=== PATIENT | male | born 1960 | race African-American/Black ===

== ENCOUNTER 2016-08-19 04:38 | Emergency (ER) | payer MEDICARE ==
[2016-08-19 04:45] VITALS: BP 142/83
--- NOTE | 2016-08-19 07:06 | ER Document Report ---
ED General - General Chief Complaint: Flu Symptoms Stated Complaint: POSSIBLE FLU SYMPTOMS TRAVEL OUTSIDE OF THE [place] IN LAST 30 DAYS: No - HPI Patient complains to provider of: cough congestion fevers nausea Notes: Patient with ongoing symptoms for approximately the last 3 days. States that he thinks he did receive a flu shot this year but is uncertain. Denies smoking denies drinking denies any other drugs. Patient denies any past medical history denies any recent travel denies any recent antibiotics. Upon my evaluation patient is resting comfortably watching his iPhone. Patient states she has not been taking any medication at home for his symptoms. - Related Data Allergies/Adverse Reactions: No Known Allergies Allergy (Verified 08/19/16 04:40) Past Medical History - Social History Smoking Status: Never Smoker Chew tobacco use (# tins/day): No Frequency of alcohol use: None Drug Abuse: None Family History: Reviewed & Not Pertinent Patient has suicidal ideation: No Patient has homicidal ideation: No Renal/ Medical History: Denies: Hx Peritoneal Dialysis Past Surgical History: Reports: Hx Orthopedic Surgery - Left knee replacement - Immunizations Immunizations up to date: No Hx Diphtheria, Pertussis, Tetanus Vaccination: No Review of Systems - Review of Systems Constitutional: Malaise EENT: No symptoms reported Cardiovascular: No symptoms reported Respiratory: Cough, Short of breath Gastrointestinal: No symptoms reported Genitourinary: No symptoms reported Male Genitourinary: No symptoms reported Musculoskeletal: Muscle pain Skin: No symptoms reported Hematologic/Lymphatic: No symptoms reported Neurological/Psychological: No symptoms reported -: Yes All other systems reviewed and negative Physical Exam - Vital signs Vitals: Temp Pulse Resp BP Pulse Ox 97.5 F 81 20 142/83 H 97 08/19/16 04:44 08/19/16 04:44 08/19/16 04:44 08/19/16 04:44 08/19/16 04:44 Interpretation: Normal - General General appearance: Appears well, Alert - HEENT Head: Normocephalic, Atraumatic Eyes: Normal Pupils: PERRL - Respiratory Respiratory status: No respiratory distress Chest status: Nontender Breath sounds: Normal Chest palpation: Normal - Cardiovascular Rhythm: Regular Heart sounds: Normal auscultation Murmur: No - Abdominal Inspection: Normal Distension: No distension Bowel sounds: Normal Tenderness: Nontender Organomegaly: No organomegaly - Back Back: Normal, Nontender - Extremities General upper extremity: Normal inspection, Nontender, Normal color, Normal ROM , Normal temperature General lower extremity: Normal inspection, Nontender, Normal color, Normal ROM , Normal temperature, Normal weight bearing. No: Nayeli's sign - Neurological Neuro grossly intact: Yes Cognition: Normal Orientation: AAOx4 [place] Coma Scale Eye Opening: Spontaneous [place] Coma Scale Verbal: Oriented [place] Coma Scale Motor: Obeys Commands Rosa Coma Scale Total: 15 Speech: Normal Motor strength normal: LUE, RUE, LLE, RLE Sensory: Normal - Psychological Associated symptoms: Normal affect, Normal mood - Skin Skin Temperature: Warm Skin Moisture: Dry Skin Color: Normal Course - Re-evaluation Re-evalutation: 08/19/16 07:45 Patient returned flu type A positive patient will be given Phenergan for any nausea. Patient was encouraged to take Tylenol and Motrin and drink plenty of fluids to stay all hydrated. The disease course of the flu was discussed with the patient patient states understanding patient will be given a work note patient will be discharged home - Vital Signs Vital signs: Temp Pulse Resp BP Pulse Ox 97.5 F 81 20 142/83 H 97 08/19/16 04:44 08/19/16 04:44 08/19/16 04:44 08/19/16 04:44 08/19/16 04:44 Discharge - Discharge Clinical Impression: Influenza A Condition: Good Disposition: HOME, SELF-CARE Instructions: Influenza ([facility]) [phone] Additional Instructions: Please drink plenty of water to stay hydrated. Follow-up with your primary care physician. You can expect to feel sick for another 4-5 days with fevers and chills he can expect to feel weak for another week Take medication as prescribed for nausea. Continue to take Tylenol and Motrin for fever and pain control. Prescriptions: Promethazine HCl [Phenergan 25 mg Tablet] 1 - 2 tab PO Q6H PRN #20 tablet PRN Reason: Forms: Return to Work
== END 2016-08-19 07:08 | disposition home or self-care (01) ==
LOC: ER 04:38
DX: J09.X2 Influenza due to identified novel influenza A virus with other respiratory manifestations (principal); R05 Cough; R09.81 Nasal congestion; R50.9 Fever, unspecified; R11.0 Nausea
CPT/HCPCS: 87804; 99283

== ENCOUNTER 2016-08-22 23:51 | Emergency (ER) | payer MEDICARE ==
--- NOTE | 2016-08-23 00:07 | ER Document Report ---
ED Medical Screen (RME) - General Chief Complaint: Fall Injury Stated Complaint: FALL/BACK PAIN Mode of Arrival: Ambulatory Information source: Patient Notes: pt presents to the ed with c/o right knee pain and low back pain after falling down three steps on his buttocks. Reports he heard his knee do something, pull. Reports left knee replacement. Denies urinary or bowel incontinence or retention. Denies numbness and tingling. Reports some left shoulder pain. Patient took Percocet before he arrived he is on pain management. I have greeted and performed a rapid initial assessment of this patient. A comprehensive ED assessment and evaluation of the patient, analysis of test results and completion of the medical decision making process will be conducted by additional ED providers. TRAVEL OUTSIDE OF THE [place] IN LAST 30 DAYS: No - Related Data Allergies/Adverse Reactions: No Known Allergies Allergy (Verified 08/19/16 04:40) Past Medical History Renal/ Medical History: Denies: Hx Peritoneal Dialysis Past Surgical History: Reports: Hx Orthopedic Surgery - Left knee replacement - Immunizations Immunizations up to date: No Hx Diphtheria, Pertussis, Tetanus Vaccination: No Physical Exam - Vital signs Vitals: Temp Pulse Resp BP Pulse Ox 98.3 F 88 16 127/79 H 94 08/22/16 23:58 08/22/16 23:58 08/22/16 23:58 08/22/16 23:58 08/22/16 23:58 Course - Vital Signs Vital signs: Temp Pulse Resp BP Pulse Ox 98.3 F 88 16 127/79 H 94 08/22/16 23:58 08/22/16 23:58 08/22/16 23:58 08/22/16 23:58 08/22/16 23:58
--- NOTE | 2016-08-23 03:19 | ER Document Report ---
ED General - General Chief Complaint: Fall Injury Stated Complaint: FALL/BACK PAIN Mode of Arrival: Ambulatory Notes: Patient is a 56-year-old male presents with complaints of knee pain, left shoulder pain, and mild low back pain. Says he fell. He says most the pain is in his left shoulder and right knee. He says it hurts to bear weight on his right knee. Most pain is on the medial aspect of his right knee. He says his left knee pain is mild. The back pain is mild. He does have some pain in the left shoulder. He says it hurts his left shoulder whenever he tries to abduct the left shoulder. He denies any is head. No loss of conscious. No neck pain. No chest or abdominal pain. No other complaints at this time. TRAVEL OUTSIDE OF THE [place] IN LAST 30 DAYS: No - Related Data Allergies/Adverse Reactions: No Known Allergies Allergy (Verified 08/19/16 04:40) Past Medical History - General Information source: Patient - Social History Smoking Status: Never Smoker Chew tobacco use (# tins/day): No Frequency of alcohol use: Occasional Drug Abuse: None Family History: Reviewed & Not Pertinent Patient has suicidal ideation: No Patient has homicidal ideation: No Renal/ Medical History: Denies: Hx Peritoneal Dialysis Past Surgical History: Reports: Hx Orthopedic Surgery - Left knee replacement - Immunizations Immunizations up to date: No Hx Diphtheria, Pertussis, Tetanus Vaccination: No Review of Systems - Review of Systems Notes: My Normal Review Basic REVIEW OF SYSTEMS: CONSTITUTIONAL : Denies fever, chills, or sweats. Denies recent illness. MUSCULOSKELETAL: Pain in right knee and left shoulder. SKIN: Denies rash or skin lesions. NEUROLOGICAL: Denies altered mental status or loss of consciousness. Denies headache. Denies weakness or paralysis or loss of use of either side. Denies problems with gait or speech. Denies sensory or motor loss. ALL OTHER SYSTEMS REVIEWED AND NEGATIVE. Physical Exam - Vital signs Vitals: Temp Pulse Resp BP Pulse Ox 98.3 F 88 16 127/79 H 94 08/22/16 23:58 08/22/16 23:58 08/22/16 23:58 08/22/16 23:58 08/22/16 23:58 - Notes Notes: General Appearance: Well nourished, alert, cooperative, no acute distress, mild obvious discomfort. Well-appearing Vitals: reviewed, See vital signs table. Head: no swelling or tenderness to the head Eyes: PERRL, EOMI, Conjuctiva clear Neck: Supple, no neck tenderness, No step-offs or deformities. Back: No tenderness to palpation of thoracic or lumbar spine. No step-offs or deformities. Extremities: strength 5/5 in all extremities, good pulses in all extremities, pain to palpation over the medial aspect of the left knee. No ligament laxity on stress exam of the joint. Patient is able to fully extend the leg and hold it off the bed without difficulty. Some pain with range of motion but no restriction. Remainder of right lower extremity is nontender. Minimal pain over left knee. Full range of motion of left knee without difficulty. Right upper extremity is nontender. Patient has some pain with range of motion of his left shoulder. Pain is mostly with abduction of left shoulder. Abduction is limited to approximately 75 remainder of left upper extremity is nontender. , no edema. Skin: warm, dry, appropriate color, no rash Neuro: speech clear, oriented x 3, normal affect, responds appropriately to questions. Course - Vital Signs Vital signs: Temp Pulse Resp BP Pulse Ox 98.3 F 88 16 127/79 H 94 08/22/16 23:58 08/22/16 23:58 08/22/16 23:58 08/22/16 23:58 08/22/16 23:58 - Transfer of Care Notes: 08/23/16 03:17 Patient appears have a knee strain. We'll place him in a Donn bandage. I encouraged him to get a neoprene knee brace from the pharmacy. I encourage him to be nonweightbearing. Patient says he prefers to use his cane over using crutches. Patient does have appears to be most likely a rotator cuff tear. His limitation with abduction. He otherwise has full range of motion of the left shoulder. No significant tenderness to palpation. No deformity. Patient will be discharged home. Encouraged to stay nonweightbearing on his knee for the next 3-4 days. After that he can attempt to start bearing weight. If he is having difficulty with bearing weight still he is to follow-up with orthopedic clinic for evaluation. Patient encouraged return to ER immediately. Has a headache, vomiting, worsening knee pain or swelling, worsening difficulties with the shoulder. Patient's left knee was minimally tender and does not require x-rays. Patient's back was nontender to palpation on my exam. Dictation of this chart was performed using voice recognition software; therefore, there may be some unintended grammatical errors. Discharge - Discharge Clinical Impression: Left shoulder strain Qualifiers: Encounter type: initial encounter Qualified Code(s): S46.912A - Strain of unspecified muscle, fascia and tendon at shoulder and upper arm level, left arm , initial encounter Knee strain Qualifiers: Encounter type: initial encounter Laterality: right Qualified Code(s): S86.911A - Strain of unspecified muscle(s) and tendon(s) at lower leg level, right leg, initial encounter Condition: Good Disposition: HOME, SELF-CARE Additional Instructions: Please follow-up with orthopedic clinic, Dr. Nesbitt, in 3-4 days if you're still having any pain with bearing weight of your knee. Please follow up closely with your primary care doctor for reevaluation in one week. Please return to the ER if you have worsening pain, swelling, severe headache, vomiting , or feel unwell. Forms: Return to Work
[2016-08-23 03:25] VITALS: BP 130/85
== END 2016-08-23 03:26 | disposition home or self-care (01) ==
LOC: ER 23:51
DX: S46.912A Strain of unspecified muscle, fascia and tendon at shoulder and upper arm level, left arm, initial encounter (principal); S86.911A Strain of unspecified muscle(s) and tendon(s) at lower leg level, right leg, initial encounter; M25.512 Pain in left shoulder; M54.5 Low back pain; M25.561 Pain in right knee; M25.562 Pain in left knee; W10.9XXA Fall (on) (from) unspecified stairs and steps, initial encounter
CPT/HCPCS: 99284

== ENCOUNTER 2016-11-16 07:30 | Emergency (ER) | payer MEDICARE ==
[2016-11-16] MEDS ORDERED: NORMAL SALINE 1000 ML 1,000 ML IV ONE (08:11)
[2016-11-16] MEDS ORDERED: LIDOCAINE 5% (700 MG) TRANSDERMAL ADH..PATCH TP ONE (08:11)
--- NOTE | 2016-11-16 08:15 | ER Document Report ---
ED General - General Chief Complaint: Headache Stated Complaint: WEAKNESS Time Seen by Provider: 11/16/16 07:53 TRAVEL OUTSIDE OF THE [place] IN LAST 30 DAYS: No - HPI Patient complains to provider of: Headache weakness Notes: Patient presents today for right-sided headache and weakness right side greater than left. Patient states workup with his symptoms. Patient states feels generally weak all over however states that the right side may feel more whenever he is looking to the left than the left side. Patient states whenever he is looking straight on symptoms are worse the same On each side. Was seen ambulating in the ER with assistance of a cane. Patient states he does use a cane for ambulation sometimes. Patient states headache sharp right-sided. Patient denies any fever chills nausea vomiting. Patient denies any significant past medical problems. Patient states he did not take anything for his headache this morning. Denies any history of trauma denies any history of travel. patient does state he is having some back pain. Denies any dysuria or bowel bladder incontinence no numbness no tingling no saddle anesthesias. - Related Data Allergies/Adverse Reactions: No Known Allergies Allergy (Verified 08/19/16 04:40) Past Medical History - Social History Smoking Status: Unknown if Ever Smoked Family History: Reviewed & Not Pertinent Patient has suicidal ideation: No Patient has homicidal ideation: No Renal/ Medical History: Denies: Hx Peritoneal Dialysis Past Surgical History: Reports: Hx Orthopedic Surgery - Left knee replacement - Immunizations Immunizations up to date: No Hx Diphtheria, Pertussis, Tetanus Vaccination: No Review of Systems - Review of Systems Constitutional: Weakness EENT: No symptoms reported Cardiovascular: No symptoms reported Respiratory: No symptoms reported Gastrointestinal: No symptoms reported Genitourinary: No symptoms reported Male Genitourinary: No symptoms reported Musculoskeletal: No symptoms reported Skin: No symptoms reported Hematologic/Lymphatic: No symptoms reported Neurological/Psychological: Headaches -: Yes All other systems reviewed and negative Physical Exam - Vital signs Vitals: Temp Pulse Resp BP Pulse Ox 98.1 F 93 18 133/83 H 96 11/16/16 07:33 11/16/16 07:33 11/16/16 07:33 11/16/16 07:33 11/16/16 07:33 Interpretation: Normal - General General appearance: Appears well, Alert - HEENT Head: Normocephalic, Atraumatic Eyes: Normal Conjunctiva: Normal Cornea: Normal Pupils: PERRL Ears: Normal External canal: Normal Tympanic membrane: Normal Sinus: Normal Nasal: Normal Mouth/Lips: Normal Neck: Normal - Respiratory Respiratory status: No respiratory distress Chest status: Nontender Breath sounds: Normal Chest palpation: Normal - Cardiovascular Rhythm: Regular Heart sounds: Normal auscultation Murmur: No - Abdominal Inspection: Normal Distension: No distension Bowel sounds: Normal Tenderness: Nontender Organomegaly: No organomegaly - Back Back: Normal, Nontender - Extremities General upper extremity: Normal inspection, Nontender, Normal color, Normal ROM , Normal temperature General lower extremity: Normal inspection, Nontender, Normal color, Normal ROM , Normal temperature, Normal weight bearing. No: Nayeli's sign - Neurological Neuro grossly intact: Yes Cognition: Normal Orientation: AAOx4 [place] Coma Scale Eye Opening: Spontaneous [place] Coma Scale Verbal: Oriented [place] Coma Scale Motor: Obeys Commands [place] Coma Scale Total: 15 Speech: Normal Cranial nerves: Normal Cerebellar coordination: Normal Motor strength normal: LUE, RUE, LLE, RLE Additional motor exam normals: Equal exercise physiologist certified Sensory: Normal Knee - Reflex grade: 2 = Normal - Psychological Associated symptoms: Normal affect, Normal mood - Skin Skin Temperature: Warm Skin Moisture: Dry Skin Color: Normal Course - Re-evaluation Re-evalutation: 11/16/16 08:18 Patient states that he is having unilateral weakness of her nerves moving appreciated on physical examination. Will obtain CT of the patient's head and an x-ray of the patient's back 11/16/16 12:13 The patient presents with headache without signs of [employer]IK[employer]ACTITIONER bleed, stroke, infection , or other serious etiology. The patient is neurologically intact. Given the extremely low risk of these diagnoses further testing and evaluation for these possibilities does not appear to be indicated at this time. The patient has been instructed to return if the symptoms worsen or change in any way.. ~: The patient presents with low back pain without signs of spinal cord compression, cauda equina syndrome, infection, aneurysm, or other serious etiology. The patient is neurologically intact. Given the extremely low risk of these diagnoses further testing and evaluation for these possibilities does not appear to be indicated at this time. The patient has been instructed to return if the symptoms worsen or change in any way. . Sleeping upon evaluation. More likely muscle skeletal cause for the patient's pain. Patient will be discharged home recommend anti-inflammatory medication and Skelaxin. Patient agrees with - Vital Signs Vital signs: Temp Pulse Resp BP Pulse Ox 98.4 F 84 18 141/90 H 96 11/16/16 11:34 11/16/16 11:34 11/16/16 11:34 11/16/16 11:34 11/16/16 11:34 - Laboratory Result Diagrams: 11/16/16 08:34 11/16/16 10:00 Discharge - Discharge Clinical Impression: Neck pain Headache Qualifiers: Headache type: unspecified Headache chronicity pattern: unspecified pattern Intractability: not intractable Qualified Code(s): R51 - Headache Back pain Qualifiers: Back pain location: low back pain Chronicity: unspecified Back pain laterality : unspecified Sciatica presence: without sciatica Qualified Code(s): M54.5 - Low back pain Condition: Good Disposition: HOME, SELF-CARE Instructions: Headache ([facility]), Muscle Relaxers ([facility]), Anti-Inflammatory Medication ([facility]), Low Back Pain ([facility]), Stretching Exercises for the Back ([facility]), Weakness ([facility]) Additional Instructions: The CAT scan of your head normal. The x-rays of her back does show some arthritic changes. I do believe more likely the pain in her head and neck is all muscle skeletal related. More likely due to tight muscles. I would highly recommend taking anti-inflammatory medication he may take the muscle relaxer prescribed. Follow-up with your primary care physician for Prescriptions: Ibuprofen [Motrin 600 Mg Tablet] 600 mg PO TID #30 tablet Metaxalone [Skelaxin 800 mg Tablet] 800 mg PO ASDIR PRN #30 tablet PRN Reason: Forms: Return to Work
[2016-11-16] MEDS ORDERED: ONDANSETRON HCL INJ/PF 4 MG/2 ML SDV IV ONE (08:20)
[2016-11-16] MEDS ORDERED: PROCHLORPERAZINE EDISYLATE INJ 10 MG/2 ML VIAL IV ONE (08:20)
[2016-11-16 08:42] LABS: ABSOLUTE BASOPHILS # (AUTO) 0.1 10^3/uL (0.0-0.2); ABSOLUTE LYMPHOCYTES (AUTO) 1.7 10^3/uL (0.5-4.7); ABSOLUTE MONOCYTES (AUTO) 0.6 10^3/uL (0.1-1.4); ABSOLUTE NEUT (AUTO) 2.7 10^3/uL (1.7-8.2); EOSINOPHILS % (AUTO) 0.7 % (0-6); HEMATOCRIT 42.2 % (37.9-51.0); HEMOGLOBIN 14.2 g/dL (13.5-17.0); HGB HCT DIFFERENCE 0.4; MEAN CORPUSCULAR HEMOGLOBIN 29.8 pg (27.0-33.4); MEAN CORPUSCULAR HGB CONC 33.8 g/dL (32.0-36.0); MEAN CORPUSCULAR VOLUME 88 fl (80-97); MONOCYTES % (AUTO) 12.1 % (3-13); RED BLOOD COUNT 4.77 10^6/uL (4.35-5.55); RED CELL DISTRIBUTION WIDTH 13.4 % (11.5-14.0); SEGMENTED NEUTROPHILS % (AUTO) 53.2 % (42-78); WHITE BLOOD COUNT 5.2 10^3/uL (4.0-10.5)
--- NOTE | 2016-11-16 08:55 | RADIOLOGY REPORT (SQ) ---
EXAM DESCRIPTION: CT HEAD WITHOUT COMPLETED DATE/TIME: 11/16/2016 8:39 am REASON FOR STUDY: weakness headache COMPARISON: 06/19/2013 TECHNIQUE: Axial images acquired through the brain without intravenous contrast. Images reviewed wi th bone, brain and subdural windows. Images stored on PACS. All CT scanners at this facility use dose modulation, iterative reconstruction, and/or weight based d osing when appropriate to reduce radiation dose to as low as reasonably achievable (ALARA). [facility]: Dose Right [facility]: CareDose [facility]: Dose Right [facility]: Teradose 4D [facility]: [employer] RADIATION DOSE: 64.61 mGy. LIMITATIONS: None. FINDINGS: VENTRICLES: Normal size and contour. CEREBRUM: No masses. No hemorrhage. No midline shift. Normal lizarraga/white matter differentiation. N o evidence for acute infarction. CEREBELLUM: No masses. No hemorrhage. No alteration of density. No evidence for acute infarction. EXTRAAXIAL SPACES: No fluid collections. No masses. ORBITS AND GLOBE: No intra- or extraconal masses. Normal contour of globe without masses. CALVARIUM: No fracture. PARANASAL SINUSES: No fluid or mucosal thickening. SOFT TISSUES: No mass or hematoma. OTHER: No other significant finding. IMPRESSION: NORMAL BRAIN CT WITHOUT CONTRAST. TECHNICAL DOCUMENTATION: JOB ID: [id number] Quality ID # [id number]: Final reports with documentation of one or more dose reduction techniques (e.g., Au tomated exposure control, adjustment of the mA and/or kV according to patient size, use of iterative reconstruction technique) 2010 [employer]- All Rights Reserved
--- NOTE | 2016-11-16 09:18 | RADIOLOGY REPORT (SQ) ---
EXAM DESCRIPTION: L SPINE 2 VIEWS COMPLETED DATE/TIME: 11/16/2016 9:02 am REASON FOR STUDY: weakness headache COMPARISON: 02/04/2016 NUMBER OF VIEWS: Five views including obliques. TECHNIQUE: AP, lateral, oblique, and sacral radiographic images acquired of the lumbar spine. LIMITATIONS: None. FINDINGS: MINERALIZATION: Normal. SEGMENTATION: Normal. No transitional anatomy. ALIGNMENT: Normal. VERTEBRAE: Maintained height. No fracture or worrisome bone lesion. DISCS: Multilevel disc space narrowing with osteophytes. POSTERIOR ELEMENTS: Pedicles and facets are intact. No pars defect or posterior arch defects. Facet arthropathy is present. HARDWARE: None in the spine. PARASPINAL SOFT TISSUES: Normal. PELVIS: Intact as visualized. No fractures or worrisome bone lesions. SI joints intact. OTHER: No other significant finding. IMPRESSION: SPONDYLOSIS WITHOUT BONE LESION OR FRACTURE. TECHNICAL DOCUMENTATION: JOB ID: [id number] [employer]- All Rights Reserved
[2016-11-16] MEDS ORDERED: KETOROLAC TROMETHAMINE INJ/PF 30 MG/1 ML SDV IV ONE (09:59)
[2016-11-16 10:47] LABS: ANION GAP 14 (5-19); BLOOD UREA NITROGEN 11 mg/dL (7-20); CALCIUM 9.6 mg/dL (8.4-10.2); CARBON DIOXIDE 30 mmol/L (22-30); CHLORIDE 99 mmol/L (98-107); CREATININE RESULT 0.77 mg/dL (0.52-1.25); GLUCOSE 80 mg/dL (75-110); MAGNESIUM 2.3 mg/dL (1.6-2.3); POTASSIUM 3.8 mmol/L (3.6-5.0); SODIUM 142.9 mmol/L (137-145)
[2016-11-16 11:35] VITALS: BP 141/90
== END 2016-11-16 12:32 | disposition home or self-care (01) ==
LOC: ER 07:30
DX: M54.2 Cervicalgia (principal); R51 Headache; M54.5 Low back pain; R53.1 Weakness; Z96.652 Presence of left artificial knee joint
CPT/HCPCS: 99284; 96374; 96375; 36415; 83735; 85025; 80048; 72100; 70450; J1885; J0780; J2405; J7030; 96361

== ENCOUNTER 2017-03-14 04:14 | Emergency (ER) | payer MEDICARE ==
--- NOTE | 2017-03-14 05:54 | RADIOLOGY REPORT (SQ) ---
EXAM DESCRIPTION: KNEE BILATERAL 1-2 VIEWS COMPLETED DATE/TIME: 03/14/2017 5:19 am REASON FOR STUDY: pain COMPARISON: None. NUMBER OF VIEWS: Two views. TECHNIQUE: AP and lateral radiographic images acquired of the right and left knee. LIMITATIONS: None. FINDINGS: MINERALIZATION: Normal. BONES: No acute fracture or dislocation. No worrisome bone lesions. No significant osteophytes. Left total knee arthroplasty without evidence of metal fracture or loosening. JOINT: Moderate left knee effusion. OTHER: No other significant finding. IMPRESSION: Moderate left knee effusion. Left total knee arthroplasty. Intact right knee. TECHNICAL DOCUMENTATION: JOB ID: [id number] [employer]- All Rights Reserved
--- NOTE | 2017-03-14 06:07 | ER Document Report ---
ED General - General Chief Complaint: Knee Pain Stated Complaint: PAIN IN BOTH KNEES Time Seen by Provider: 03/14/17 04:44 TRAVEL OUTSIDE OF THE [place] IN LAST 30 DAYS: No - HPI Patient complains to provider of: Bilateral knee pain Notes: Patient coming in for bilateral knee pain. Patient states proximal and 24 hours ago had a fall refill on both knees. Patient denies any other trauma patient has a history of the left knee replacement. Patient states no relief at home with Tylenol Motrin. Patient denies fevers chills nausea vomiting diarrhea. Patient is ambulating with a cane - Related Data Allergies/Adverse Reactions: No Known Allergies Allergy (Verified 03/14/17 04:18) Past Medical History - Social History Smoking Status: Never Smoker Chew tobacco use (# tins/day): No Frequency of alcohol use: None Drug Abuse: None Family History: Reviewed & Not Pertinent Patient has suicidal ideation: No Patient has homicidal ideation: No Renal/ Medical History: Denies: Hx Peritoneal Dialysis Past Surgical History: Reports: Hx Orthopedic Surgery - Left knee replacement - Immunizations Immunizations up to date: No Hx Diphtheria, Pertussis, Tetanus Vaccination: No Review of Systems - Review of Systems Constitutional: No symptoms reported EENT: No symptoms reported Cardiovascular: No symptoms reported Respiratory: No symptoms reported Gastrointestinal: No symptoms reported Genitourinary: No symptoms reported Male Genitourinary: No symptoms reported Musculoskeletal: Other - Bilateral knee pain Skin: No symptoms reported Hematologic/Lymphatic: No symptoms reported Neurological/Psychological: No symptoms reported Physical Exam - Vital signs Vitals: Temp Pulse Resp BP Pulse Ox 98.7 F 93 18 138/76 H 95 03/14/17 04:18 03/14/17 04:18 03/14/17 04:18 03/14/17 04:18 03/14/17 04:18 Interpretation: Normal - General General appearance: Appears well, Alert - HEENT Head: Normocephalic, Atraumatic Eyes: Normal Pupils: PERRL - Respiratory Respiratory status: No respiratory distress Chest status: Nontender Breath sounds: Normal Chest palpation: Normal - Cardiovascular Rhythm: Regular Heart sounds: Normal auscultation Murmur: No - Abdominal Inspection: Normal Distension: No distension Bowel sounds: Normal Tenderness: Nontender Organomegaly: No organomegaly - Back Back: Normal, Nontender - Extremities General upper extremity: Normal inspection, Nontender, Normal color, Normal ROM , Normal temperature General lower extremity: Nontender, Normal color, Normal ROM, Normal temperature , Normal weight bearing. No: Normal inspection - Patient has a healed surgical scar on the left knee. Slight joint effusion. Left knee and right knee showed no laxity with valgus varus anterior posterior drawer testing., Nayeli's sign - Neurological Neuro grossly intact: Yes Cognition: Normal Orientation: AAOx4 Webb Coma Scale Eye Opening: Spontaneous Rosa Coma Scale Verbal: Oriented Webb Coma Scale Motor: Obeys Commands Webb Coma Scale Total: 15 Speech: Normal Motor strength normal: LUE, RUE, LLE, RLE Sensory: Normal - Psychological Associated symptoms: Normal affect, Normal mood - Skin Skin Temperature: Warm Skin Moisture: Dry Skin Color: Normal Course - Re-evaluation Re-evalutation: 03/14/17 06:05 X-rays of the knees are negative. Reviewed patient's narcotic prescriptions for narcotic database shows monthly prescriptions of oxycodone patient looks to be in pain management in [facility]. The explained to the patient has x- rays negative think follow-up with his primary care physician for further evaluation. - Vital Signs Vital signs: Temp Pulse Resp BP Pulse Ox 98.7 F 93 18 138/76 H 95 03/14/17 04:18 03/14/17 04:18 03/14/17 04:18 03/14/17 04:18 03/14/17 04:18 Discharge - Discharge Clinical Impression: Bilateral knee pain Qualifiers: Chronicity: acute Qualified Code(s): M25.561 - Pain in right knee; M25.562 - Pain in left knee Condition: Good Disposition: HOME, SELF-CARE Instructions: Ice & Elevation ([facility]), Knee Exercise Program ([facility]), Contusion ( [facility]), Anti-Inflammatory Medication ([facility]) Additional Instructions: Evaluation today does not reveal any signs of fracture your x-rays are negative. More likely experiencing bruising from her recent trauma. However recommend continue to ice and elevate he may also continue take Tylenol and Motrin for pain control. Follow-up with your primary care physician return to the ER symptoms worsen Forms: Return to Work Referrals: CHEO MALDONADO MD [Primary Care Provider] - Follow up as needed
[2017-03-14 06:23] VITALS: BP 132/78
== END 2017-03-14 06:27 | disposition home or self-care (01) ==
LOC: ER 04:14
DX: M25.562 Pain in left knee (principal); M25.462 Effusion, left knee; M25.561 Pain in right knee; W19.XXXA Unspecified fall, initial encounter; Z96.652 Presence of left artificial knee joint; Z79.891 Long term (current) use of opiate analgesic
CPT/HCPCS: 99283

== ENCOUNTER 2018-09-19 09:27 | Emergency (ER) | payer MEDICARE ==
[2018-09-19] MEDS ORDERED: LIDOCAINE 5% (700 MG) TRANSDERMAL ADH..PATCH TP ONE (09:43)
[2018-09-19] MEDS ORDERED: KETOROLAC TROMETHAMINE 60 MG/2 ML SDV IM ONE (09:43)
[2018-09-19] MEDS ORDERED: DEXAMETHASONE SOD PHOS INJ 10 MG/1 ML VIAL IM ONE (09:43)
--- NOTE | 2018-09-19 09:49 | ER Document Report ---
ED Neck/Back Problem - General Chief Complaint: Back Pain Stated Complaint: BACK PAIN Time Seen by Provider: 09/19/18 09:41 Primary Care Provider: CHEO MALDONADO MD [Primary Care Provider] - Follow up as needed Mode of Arrival: Ambulatory Information source: Patient Notes: 58-year-old male presents to ED for complaint of lower back pain mostly on the left going down the left leg to the foot. He also has left knee pain and the left knee feels "loose ". He states he has had previous surgery on the left knee. He states he has had similar pain in the past but he was lifting something and it became worse. He states he has had back injections for similar pain about a year ago. Patient is alert oriented respirations regular and unlabored speaking in full sentences walks with a even steady gait. He states he is retired and is on disability due to his back and knee. TRAVEL OUTSIDE OF THE [place] IN LAST 30 DAYS: No - HPI Patient complains to provider of: Pain, Lower back - And left knee Onset: Other - Chronic worse the last couple days Onset: Chronic Timing: Still present Quality of pain: Achy, Sharp Severity: Moderate Pain Level: 4 Recent injury: No Associated symptoms: Like prior neck/back pain, Radiation to leg, Lower back pain. denies: Incontinence, Motor loss, Numbness/tingling, Radiation to arm, Radiation to chest, Sensory loss, Sweaty, Unable to urinate, Upper back pain Exacerbated by: Movement of trunk Relieved by: Nothing Similar symptoms previously: Yes Recently seen / treated by doctor: No - Related Data Allergies/Adverse Reactions: No Known Allergies Allergy (Verified 09/19/18 09:33) Past Medical History - General Information source: Patient - Social History Smoking Status: Former Smoker Cigarette use (# per day): No Smoking Education Provided: No Frequency of alcohol use: Occasional Drug Abuse: None Occupation: retired Lives with: Family Family History: Reviewed & Not Pertinent Patient has suicidal ideation: No Patient has homicidal ideation: No - Past Medical History Cardiac Medical History: Reports: None Pulmonary Medical History: Reports: None EENT Medical History: Reports: None Neurological Medical History: Reports: None Endocrine Medical History: Reports: None Renal/ Medical History: Reports: None GI Medical History: Reports: None Musculoskeletal Medical History: Reports Hx Arthritis, Reports Hx Musculoskeletal Deformity, Reports Hx Musculoskeletal Trauma Skin Medical History: Reports None Psychiatric Medical History: Reports: None Traumatic Medical History: Reports: None Infectious Medical History: Reports: None Past Surgical History: Reports: Hx Orthopedic Surgery - Left knee replacement - Immunizations Immunizations up to date: No Hx Diphtheria, Pertussis, Tetanus Vaccination: No Review of Systems - Review of Systems Constitutional: No symptoms reported EENT: No symptoms reported Cardiovascular: No symptoms reported Respiratory: No symptoms reported Gastrointestinal: No symptoms reported Genitourinary: No symptoms reported Male Genitourinary: No symptoms reported Musculoskeletal: Back pain, Joint pain - left knee Skin: No symptoms reported Hematologic/Lymphatic: No symptoms reported Neurological/Psychological: No symptoms reported -: Yes All other systems reviewed and negative Physical Exam - Vital signs Vitals: Temp Pulse Resp BP Pulse Ox 97.6 F 95 16 156/81 H 98 09/19/18 09:30 09/19/18 09:30 09/19/18 09:30 09/19/18 09:30 09/19/18 09:30 Interpretation: Normal - General General appearance: Appears well, Alert - HEENT Head: Normocephalic, Atraumatic Eyes: Normal Pupils: PERRL - Respiratory Respiratory status: No respiratory distress Chest status: Nontender Breath sounds: Normal Chest palpation: Normal - Cardiovascular Rhythm: Regular Heart sounds: Normal auscultation Murmur: No - Abdominal Inspection: Normal Distension: No distension Bowel sounds: Normal Tenderness: Nontender Organomegaly: No organomegaly - Back Back: Normal, Tender, Vertebra tenderness - Lower back towards the left Notes: No signs or symptoms of cauda equina, no loss of control of bowel or bladder no saddle anesthesia no control or sensation to the lower extremity - Extremities General upper extremity: Normal inspection, Nontender, Normal color, Normal ROM, Normal temperature General lower extremity: Normal inspection, Nontender, Normal color, Normal ROM, Normal temperature, Normal weight bearing. No: Nayeli's sign - Neurological Neuro grossly intact: Yes Cognition: Normal Orientation: AAOx4 Rosa Coma Scale Eye Opening: Spontaneous Rosa Coma Scale Verbal: Oriented Rosa Coma Scale Motor: Obeys Commands [place] Coma Scale Total: 15 Speech: Normal Motor strength normal: LUE, RUE, LLE, RLE Sensory: Normal - Psychological Associated symptoms: Normal affect, Normal mood - Skin Skin Temperature: Warm Skin Moisture: Dry Skin Color: Normal Course - Re-evaluation Re-evalutation: 09/19/18 11:17 After performing a Medical Screening Examination, I estimate there is LOW risk for EXPANDING OR RUPTURED ABDOMINAL AORTIC ANEURYSM, CAUDA EQUINA SYNDROME, EPIDURAL MASS LESION, or HERNIATED DISK CAUSING SEVERE SPINAL STENOSIS, thus I c onsider the discharge disposition reasonable. I have reevaluated this patient multiple times and no significant life threatening changes are noted. The patient and I have discussed the diagnosis and risks, and we agree with discharging home and close follow-up. We also discussed returning to the Emergency Department immediately if new or worsening symptoms occur with the understanding that symptoms and presentations can change. We have discussed the symptoms which are most concerning (e.g., saddle anesthesia, urinary or bowel incontinence or retention, changing or worsening pain) that necessitate immediate return. - Vital Signs Vital signs: Temp Pulse Resp BP Pulse Ox 98.2 F 81 16 137/85 H 94 09/19/18 11:09 09/19/18 11:09 09/19/18 11:09 09/19/18 11:09 09/19/18 11:09 - Diagnostic Test Radiology reviewed: Image reviewed, Reports reviewed Discharge - Discharge Clinical Impression: Degenerative disc disease Qualifiers: Spinal region: lumbar Qualified Code(s): M51.36 - Other intervertebral disc degeneration, lumbar region Low back pain with left-sided sciatica Qualifiers: Chronicity: chronic Back pain laterality: bilateral Qualified Code(s): M54.42 - Lumbago with sciatica, left side Left knee pain Qualifiers: Chronicity: chronic Qualified Code(s): M25.562 - Pain in left knee Condition: Stable Disposition: HOME, SELF-CARE Additional Instructions: LOW BACK PAIN: Three out of every four people will have an episode of disabling back pain during their lifetime. Most commonly the pain is due to straining of the muscles and ligaments in the low back. Usual treatment includes: (1) Rest on a firm surface. Avoid lying on your stomach. (2) Ice pack the painful area. After a few days, gentle heat may be used intermittently to relax the area, or ice packs can be continued. (3) Medication may be needed -- muscle relaxers and antiinflammatory medicines are commonly used. (4) As the back improves, exercises are prescribed to strengthen the back and abdominal muscles. Your doctor will advise you on the proper care for your back at each stage in your recovery. You may be better in a few days -- or healing may take several weeks. If new symptoms of a "herniated disc" (radiation of pain, numbness, or tingling down the back of the leg or weakness in the leg) occur, you should be re-examined. Further testing may be necessary. MUSCLE RELAXERS: Muscle relaxing medications are usually prescribed for acute muscle spasm or injury to the neck and back. They are often combined with antiinflammatory pain medication for increased relief. You may stop the muscle relaxer when the pain and stiffness have improved. Start the medication again if spasms recur. Muscle relaxers may cause drowsiness, especially with the first dose. Do not operate machinery or drive while under the effects of the medication. Most muscle relaxers last up to 24 hours. Do not combine the medication with alcohol. Ibuprofen Ibuprofen is an excellent, safe drug for pain control. In addition, it has potent antiinflammatory effects which are beneficial, especially in the treatment of injuries, arthritis, or tendonitis. It's best to take ibuprofen with food. Persons with ulcer disease or allergy to aspirin should notify their physician of this before taking ibuprofen. Take the medication exactly as prescribed. Don't take additional doses unless instructed to do so by your doctor. If you develop wheezing, shortness of breath, hives, faintness, stomach pain, vomiting, or dark black stools, return for re-evaluation at once. ICE PACKS: Apply ice packs frequently against the painful area. Many different schedules are recommended, such as "20 minutes on, 20 minutes off" or "one hour ice, two hours rest." If you need to work, you may need to go longer between ice treatments. You should plan to have the area ice packed AT LEAST one fourth of the time. The ice should be applied over the wrap, tape, or splint, or over a layer of cloth -- not directly against the skin. Some ice bags have a built-in cloth and can be put directly on the skin. WARM PACKS: After approximately two days, apply gentle heat (such as a heating pad or hot water bottle) for about 20 to 30 minutes about every two hours -- at least four times daily. Warmth and elevation will help you make a more rapid recovery, and will ease the pain considerably. Do not use HOT heat, and never apply heat for longer than 30 minutes. The continuous heat can invisibly damage skin and muscles -- even when no burn is seen on the surface. Damaged muscles can make you MORE sore. Stretching Exercises for the Back The physician has recommended that you begin stretching exercises for your back. These are often used even while the back is painful. However, you should notify the physician if the activities seem to increase your pain. PELVIC TILT: Lie flat on your back with knees bent. Tighten your stomach and buttock muscles so it flattens your lower back against the floor. Hold 10 seconds. Repeat 10 times, twice daily. KNEE RAISE: Lying on the back with knees bent, raise one knee to your chest, then the other. Hold both knees against the chest 10 seconds, then lower one knee at a time. Repeat 10 times, twice daily. PARTIAL TRUNK RAISE: Lie face down, arms at your sides. Keeping your waist on the floor, use your arms raise your chest up. Support yourself on your elbows for 30 seconds. Repeat twice daily, increasing the time to two minutes as you recover. Knee Exercise Program It's important to strengthen the muscles around the knee. This protects the injured area and stabilizes a knee that's been loosened by ligament injury. EARLY - Even when motion of the knee is painful (even when wearing a splint), you can begin isometric "quads" exercises. While sitting, hold the knee out, and contract the muscles to stiffen it. It shouldn't be straightened all the way -- stiffen it in a slightly-bent position. Lift the leg and draw a "T" with your foot, up to 100 times. When it becomes easy, add a weight on your foot. LATE - When the doctor advises you, you can begin moving the knee against resistance. The front muscles (quadriceps) are most important. While sitting at a [employer], straighten the knee forcefully while pushing a weight up with your ankle. Start with five to 10 pounds. Do 10 to 20 repetitions, increasing the weight as tolerated. Don't use more weight than is comfortable! Over a few weeks, work up to 35 to 50 pounds. Athletes should try to reach 70 to 90 pounds. FOLLOW-UP CARE: If you have been referred to a physician for follow-up care, call the physicians office for an appointment as you were instructed or within the next two days. If you experience worsening or a significant change in your symptoms, notify the physician immediately or return to the Emergency Department at any time for re-evaluation. Prescriptions: Cyclobenzaprine HCl [Flexeril 10 mg Tablet] 10 mg PO TIDP PRN #15 tab PRN Reason: Ibuprofen [Motrin 800 mg Tablet] 800 mg PO Q8H PRN #30 tab PRN Reason: Forms: Elevated Blood Pressure Referrals: CHEO MALDONADO MD [Primary Care Provider] - Follow up as needed
--- NOTE | 2018-09-19 11:00 | RADIOLOGY REPORT (SQ) ---
EXAM DESCRIPTION: KNEE LEFT 4 VIEW COMPLETED DATE/TIME: 09/19/2018 10:11 am REASON FOR STUDY: pain "loose" previous surgery COMPARISON: Left knee films 06/12/2013, 02/04/2016 NUMBER OF VIEWS: Four views. TECHNIQUE: AP, lateral, and both oblique radiographic images acquired of the left knee. LIMITATIONS: None. FINDINGS: MINERALIZATION: Normal. BONES: No acute fracture. JOINT: There is a total knee replacement with patellar resurfacing. There is minimal lucency between the tibial component and redding bone, similar compared to previous studies which could indicate loos ening. Infection could not entirely be excluded SOFT TISSUES: There is diffuse pre patellar and distal thigh soft tissue swelling. No gross joint ef fusion OTHER: No other significant finding. IMPRESSION: Total knee replacement with diffuse prepatellar and distal thigh soft tissue swelling. No acute fracture or malalignment. There is lucency along the tibial component of the prosthesis which could indicate loosening TECHNICAL DOCUMENTATION: JOB ID: [id number] [email or web address]- All Rights Reserved Reading location - IP/workstation name: [email or web address]
--- NOTE | 2018-09-19 11:03 | RADIOLOGY REPORT (SQ) ---
EXAM DESCRIPTION: L SPINE WHOLE COMPLETED DATE/TIME: 09/19/2018 10:11 am REASON FOR STUDY: low back pain with radiation down left leg COMPARISON: Lumbar spine films 11/16/2016, 02/04/2016 NUMBER OF VIEWS: Five views including obliques. TECHNIQUE: AP, lateral, oblique, and sacral radiographic images acquired of the lumbar spine. LIMITATIONS: None. FINDINGS: MINERALIZATION: Normal. SEGMENTATION: Normal. No transitional anatomy. ALIGNMENT: Very mild convex rightward lumbar curvature VERTEBRAE: Maintained height. No fracture or worrisome bone lesion. DISCS: Disc space loss of height at L2-3 with very mild anterior osteophyte formation POSTERIOR ELEMENTS: Pedicles and facets are intact. No pars defect or posterior arch defects. HARDWARE: None in the spine. PARASPINAL SOFT TISSUES: Normal. PELVIS: No SI joint sclerosis OTHER: No other significant finding. IMPRESSION: Disc space loss of height at L2-3 TECHNICAL DOCUMENTATION: JOB ID: [id number] [employer]- All Rights Reserved Reading location - IP/workstation name: [email or web address]
[2018-09-19 11:10] VITALS: BP 137/85
== END 2018-09-19 11:20 | disposition home or self-care (01) ==
LOC: ER 09:27
DX: M51.36 Other intervertebral disc degeneration, lumbar region (principal); M54.42 Lumbago with sciatica, left side; M25.562 Pain in left knee; Z96.652 Presence of left artificial knee joint
CPT/HCPCS: 99283; 96372; 73564; 72110; J1885; J1100

== ENCOUNTER 2019-05-01 08:40 | Emergency (ER) | payer OTHER, MEDICARE ==
[2019-05-01] MEDS ORDERED: TRAMADOL HCL 50 MG TABLET PO ONE (09:00)
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
--- NOTE | 2019-05-01 09:50 | RADIOLOGY REPORT (SQ) ---
EXAM DESCRIPTION: KNEE LEFT 3 VIEWS COMPLETED DATE/TIME: 05/01/2019 9:29 am REASON FOR STUDY: injury COMPARISON: None. NUMBER OF VIEWS: Three views. TECHNIQUE: AP, lateral, and sunrise patella radiographic images acquired of the left knee. LIMITATIONS: None. FINDINGS: MINERALIZATION: Normal. BONES: No acute fracture or dislocation. No worrisome bone lesions. Total knee replacement. JOINT: No effusion. SOFT TISSUES: No soft tissue swelling. No radio-opaque foreign body. OTHER: No other significant finding. IMPRESSION: No acute fracture. Total knee replacement. TECHNICAL DOCUMENTATION: JOB ID: [id number] [employer]- All Rights Reserved Reading location - IP/workstation name: [email or web address]
[2019-05-01 10:39] VITALS: BP 141/92
== END 2019-05-01 10:20 | disposition home or self-care (01) ==
LOC: ER 08:40
DX: S80.02XA Contusion of left knee, initial encounter (principal); V48.5XXA Car driver injured in noncollision transport accident in traffic accident, initial encounter
CPT/HCPCS: 73562; L1830; 99283

== ENCOUNTER 2019-07-02 19:36 | Emergency (ER) | payer MEDICARE, OTHER ==
[2019-07-02 19:48] VITALS: BP 130/82
[2019-07-02] MEDS ORDERED: LIDOCAINE 5% (700 MG) TRANSDERMAL ADH..PATCH TP ONE (20:28)
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
== END 2019-07-02 20:39 | disposition home or self-care (01) ==
LOC: ER 19:36
DX: S39.012A Strain of muscle, fascia and tendon of lower back, initial encounter (principal); X50.0XXA Overexertion from strenuous movement or load, initial encounter; Y93.89 Activity, other specified; Z87.891 Personal history of nicotine dependence
CPT/HCPCS: 99283; A9270

== ENCOUNTER 2020-06-21 16:17 | Emergency (ER) | payer MEDICARE ==
[2020-06-21] MEDS ORDERED: RINGERS SOLUTION,LACTATED 1,000 ML IV ONE (17:09)
[2020-06-21] MEDS ORDERED: ONDANSETRON HCL INJ/PF 4 MG/2 ML SDV IV ONE ×2 (17:09→21:45)
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
[2020-06-21 17:50] LABS: ABSOLUTE LYMPHOCYTES (AUTO) 1.9 10^3/uL (0.5-4.7); ABSOLUTE MONOCYTES (AUTO) 1.7 10^3/uL (0.1-1.4); ABSOLUTE NEUT (AUTO) 7.1 10^3/uL (1.7-8.2); BASOPHILS % (AUTO) 0.3 % (0-2); HEMATOCRIT 45.7 % (37.9-51.0); HEMOGLOBIN 16.1 g/dL (13.5-17.0); LYMPHOCYTES % (AUTO) 17.8 % (13-45); MEAN CORPUSCULAR HEMOGLOBIN 30.9 pg (27.0-33.4); MEAN CORPUSCULAR HGB CONC 35.3 g/dL (32.0-36.0); MEAN CORPUSCULAR VOLUME 88 fl (80-97); MONOCYTES % (AUTO) 15.8 % (3-13); PLATELET COUNT 346 10^3/uL (150-450); RED BLOOD COUNT 5.22 10^6/uL (4.35-5.55); RED CELL DISTRIBUTION WIDTH 12.7 % (11.5-14.0); SEGMENTED NEUTROPHILS % (AUTO) 66.1 % (42-78); TOTAL CELLS COUNTED % (AUTO) 100 %; WHITE BLOOD COUNT 10.8 10^3/uL (4.0-10.5)
--- NOTE | 2020-06-21 17:53 | RADIOLOGY REPORT (SQ) ---
EXAM DESCRIPTION: CHEST SINGLE VIEW IMAGES COMPLETED DATE/TIME: 06/21/2020 2:41 pm REASON FOR STUDY: cough COMPARISON: 06/12/2013. EXAM PARAMETERS: NUMBER OF VIEWS: One view. TECHNIQUE: Single frontal radiographic view of the chest acquired. RADIATION DOSE: NA LIMITATIONS: None. FINDINGS: LUNGS AND PLEURA: Question of some increased faint opacities in the lower lungs, slightly more pronounced on the right. No pleural effusion or pneumothorax. MEDIASTINUM AND HILAR STRUCTURES: No masses. Contour normal. HEART AND VASCULAR STRUCTURES: Heart normal in size. Normal vasculature. BONES: No acute findings. HARDWARE: None in the chest. OTHER: No other significant finding. IMPRESSION: Question of some faint increased opacities in the lower lung cruz, right greater than left. Findings could be artifactual. Component of mild atelectasis or infection is possible. TECHNICAL DOCUMENTATION: JOB ID: [id number] 2010 [employer]- All Rights Reserved Reading location - IP/workstation name: [email or web address]
[2020-06-21 17:55] LABS: APPEARANCE,URINE CLOUDY; BILIRUBIN,URINE NEGATIVE (NEGATIVE); COLOR,URINE AMBER; GLUCOSE, URINE NEGATIVE (NEGATIVE); KETONES,URINE TRACE mg/dL (NEGATIVE); LEUKOCYTE ESTERASE,URINE NEGATIVE (NEGATIVE); NITRITE,URINE NEGATIVE (NEGATIVE); PROTEIN,URINE 100 mg/dL (NEGATIVE); URINE SPECIFIC GRAVITY 1.023; UROBILINOGEN,URINE NEGATIVE mg/dL (<2.0)
[2020-06-21 18:09] LABS: ALBUMIN 4.7 g/dL (3.5-5.0); ALKALINE PHOSPHATASE 98 U/L (38-126); ANION GAP 16 (5-19); ASPARTATE AMINO TRANSFERASE 41 U/L (17-59); BILIRUBIN,DIRECT 0.1 mg/dL (0.0-0.4); BLOOD UREA NITROGEN 46 mg/dL (7-20); CALCIUM 9.6 mg/dL (8.4-10.2); CARBON DIOXIDE 24 mmol/L (22-30); CHLORIDE 93 mmol/L (98-107); GLUCOSE 115 mg/dL (75-110); POTASSIUM 3.3 mmol/L (3.6-5.0); TOTAL PROTEIN 8.1 g/dL (6.3-8.2)
--- NOTE | 2020-06-21 22:15 | ER Document Report ---
ED General - General Chief Complaint: Nausea/Vomiting/Diarrhea Stated Complaint: VOMITING,DIARRHEA,BODY ACHES Time Seen by Provider: 06/21/20 17:07 Primary Care Provider: CHEO MALDONADO MD [Primary Care Provider] - Follow up as needed Mode of Arrival: Ambulatory Information source: Patient Notes: Patient presents to the ER for evaluation of abdominal cramps with nausea, vomiting, diarrhea and generalized body aches/chills times approximately 4 to 5 days. The patient states he has had a mild dry cough with some congestion throughout this time. He states he was exposed to Covid by a primary relative last week. He denies chest pain. He denies shortness of breath. He is able to tolerate oral fluids. Nursing notes reviewed and past medical, social, and family histories reviewed and validated. TRAVEL OUTSIDE OF THE [place] IN LAST 30 DAYS: No - Related Data Allergies/Adverse Reactions: No Known Allergies Allergy (Verified 05/01/19 08:47) Past Medical History - General Information source: Patient - Social History Smoking Status: Never Smoker Chew tobacco use (# tins/day): No Frequency of alcohol use: None Drug Abuse: None Lives with: Family Family History: Reviewed & Not Pertinent Patient has suicidal ideation: No Patient has homicidal ideation: No - Past Medical History Cardiac Medical History: Reports: None Pulmonary Medical History: Reports: None EENT Medical History: Reports: None Neurological Medical History: Reports: None Endocrine Medical History: Reports: None Renal/ Medical History: Reports: None. Denies: Hx Peritoneal Dialysis Malignancy Medical History: Reports None GI Medical History: Reports: None Musculoskeletal Medical History: Reports Hx Arthritis, Reports Hx Musculoskeletal Deformity, Reports Hx Musculoskeletal Trauma Skin Medical History: Reports None Psychiatric Medical History: Reports: None Traumatic Medical History: Reports: None Infectious Medical History: Reports: None Past Surgical History: Reports: Hx Orthopedic Surgery - Left knee replacement - Immunizations Immunizations up to date: No Hx Diphtheria, Pertussis, Tetanus Vaccination: No Review of Systems - Review of Systems Notes: Constitutional: Negative for fever. HENT: Negative for sore throat. Eyes: Negative for visual changes. Cardiovascular: Negative for chest pain. Respiratory: Negative for shortness of breath. Gastrointestinal: Positive for abdominal cramps. Positive for nausea and vomiting. Positive for diarrhea. Genitourinary: Negative for dysuria. Musculoskeletal: Negative for back pain. Skin: Negative for rash. Neurological: Negative for headaches, weakness or numbness. 10 point ROS negative except as marked above and in HPI. Physical Exam - Vital signs Vitals: Temp Pulse Resp BP Pulse Ox 97.5 F 109 H 20 106/74 97 06/21/20 16:20 06/21/20 16:20 06/21/20 16:20 06/21/20 16:20 06/21/20 16:20 - Notes Notes: CONSTITUTIONAL: Well appearing. No acute distress. SKIN: Warm, dry, and intact without rash EYES: Extraocular movements are grossly intact, clear conjunctiva HENT: Normocephalic, atraumatic, moist mucus membranes NECK: No obvious swelling, normal range of motion PULMONARY: Normal chest rise and fall. Breath sounds clear and equal bilate rally. No respiratory distress or stridor CARDIOVASCULAR: Regular rate. No murmurs, rubs, gallops. Distal extremities are warm and well perfused. ABDOMINAL: The abdomen is soft. There is no significant tenderness noted. NEUROLOGIC: Normal speech, moves all extremities. Cranial nerves are within n ormal limits. [employer] strength strong and equal in the upper extremities bilaterally. There is good strength and sensation in bilateral lower extremities. There is no arm or leg drift noted. MUSCULOSKELETAL: No gross deformities, atraumatic PSYCHIATRIC: Normal mood and affect Course - Re-evaluation Re-evalutation: 06/22/20 00:17 Rechecked patient who has responded well to treatment in the ER. Discussed with patient: results, diagnosis, treatment plan, and need for follow-up. Return to the emergency department warnings were given. All questions and concerns were addressed. The plan is agreed with and understood. Patient is stable and ready for discharge. - Vital Signs Vital signs: Temp Pulse Resp BP Pulse Ox 98.5 F 92 16 103/55 L 95 06/21/20 21:13 06/21/20 21:13 06/21/20 21:13 06/21/20 21:13 06/21/20 21:13 - Laboratory Results Result Diagrams: 06/21/20 17:30 06/21/20 17:30 Laboratory Results Interpreted: 06/21/20 06/21/20 06/21/20 17:15 17:30 17:30 WBC 10.8 H [place] % (Auto) 15.8 H Absolute Monos (auto) 1.7 H Sodium 132.5 L Potassium 3.3 L Chloride 93 L BUN 46 H Creatinine 1.63 H Est GFR ( Amer) 53 L Est GFR (MDRD) Non-Af 44 L Glucose 115 H Urine Protein 100 H Urine Ketones TRACE H Critical Laboratory Results Reviewed: No Critical Results - Radiology Results Critical Radiology Results Reviewed: No Critical Results Discharge - Discharge Clinical Impression: Nausea vomiting and diarrhea, Viral syndrome, Exposure to COVID-19 virus, Dehydration Condition: Stable Disposition: HOME, SELF-CARE Instructions: COVID-19 Guidance for Persons Under Investigation, Vomiting ([facility]) Additional Instructions: Follow-up with your primary care in 1 to 2 weeks for a recheck of your lab work. Your dehydrated today. Your kidney function was mildly elevated and needs to be rechecked. Prescriptions: Diphenoxylate HCl/Atrop Sulf [Lomotil 2.5 mg Tablet] 1 tab PO Q6HP PRN #5 tablet PRN Reason: Diarrhea Promethazine HCl [Phenergan 25 mg Tablet] 25 mg PO Q8HP PRN #12 tablet PRN Reason: For Nausea/Vomiting Azithromycin [Zithromax 250 mg Tablet] 250 mg PO ASDIR PRN #6 tablet PRN Reason: Referrals: CHEO MALDONADO MD [Primary Care Provider] - Follow up as needed
[2020-06-22 00:56] VITALS: BP 120/79
== END 2020-06-22 01:15 | disposition home or self-care (01) ==
LOC: ER 16:17
DX: U07.1 COVID-19 (principal); R11.2 Nausea with vomiting, unspecified; R19.7 Diarrhea, unspecified; B34.9 Viral infection, unspecified; M79.10 Myalgia, unspecified site; E86.0 Dehydration
CPT/HCPCS: 99284; 96361; 96374; 36415; 83690; 85025; 80053; 81001; 71045; U0003; J2405; J7120; C9803; 87635